=== PATIENT | female | born 1970 | race Hispanic/Latino ===

== ENCOUNTER 2017-05-12 23:25 | Emergency (ER) | payer MEDICAID ==
[2017-05-12] MEDS ORDERED: ASPIRIN 325 MG TABLET ONE (23:43)
[2017-05-12 23:47] LABS: BASOPHILS % (AUTO) 0.8 % (0.0-5.0); EOSINOPHILS % (AUTO) 1.8 % (0.0-8.0); HEMATOCRIT 38.3 % (36-48); LYMPHOCYTES % (AUTO) 30.6 % (21.0-51.0); MEAN CORPUSCULAR HEMOGLOBIN 30.9 pg (27.0-33.0); MEAN CORPUSCULAR HGB CONC 34.2 g/dL (32.0-36.0); MEAN CORPUSCULAR VOLUME 90.2 fL (79-99); MONOCYTES % (AUTO) 5.8 % (3.0-13.0); PLATELET COUNT (AUTO) 213 K/uL (130-400); RED BLOOD CELL COUNT(AUTO) 4.25 MIL/uL (4.00-5.50); RED CELL DISTRIBUTION WIDTH 12.9 % (11.0-15.5); WHITE BLOOD COUNT (AUTO) 9.6 K/uL (4.8-10.8)
[2017-05-12 23:56] LABS: CREATININE 0.7 mg/dL (0.5-1.5); POTASSIUM 3.5 mmol/L (3.5-5.1)
[2017-05-12 23:57] LABS: INR 0.89 (0.85-1.15); PARTIAL THROMBOPLASTIN TIME 25.2 SEC (26.3-35.5); PROTHROMBIN TIME 9.4 SEC (9.6-11.6)
[2017-05-13 00:05] LABS: B-TYPE NATRIURETIC PEPTIDE 15 pg/mL (0-100)
[2017-05-13 00:12] LABS: ALBUMIN 3.5 g/dL (3.5-5.0); BILIRUBIN,TOTAL 0.1 mg/dL (0.2-1.0); TOTAL PROTEIN, SERUM 7.4 g/dL (6.0-8.3)
[2017-05-13 01:01] LABS: AMPHET/METH SCREEN,URINE NEGATIVE (NEGATIVE); BARBITURATE SCREEN, URINE NEGATIVE (NEGATIVE); BENZODIAZEPINES SCREEN,URINE NEGATIVE (NEGATIVE); CANNABINOID SCREEN,URINE NEGATIVE (NEGATIVE); COCAINE SCREEN,URINE NEGATIVE (NEGATIVE); OPIATE SCREEN,URINE POSITIVE (NEGATIVE); PHENCYCLIDINE SCREEN,URINE NEGATIVE (NEGATIVE)
== END 2017-05-13 02:08 | disposition home or self-care (01) ==
LOC: EDH 23:25
DX: R00.2 Palpitations (principal); F41.9 Anxiety disorder, unspecified; E78.5 Hyperlipidemia, unspecified; M79.7 Fibromyalgia; F32.9 Major depressive disorder, single episode, unspecified; G89.29 Other chronic pain; M54.5 Low back pain; R79.1 Abnormal coagulation profile; Z98.890 Other specified postprocedural states; Z72.0 Tobacco use; Z88.1 Allergy status to other antibiotic agents
CPT/HCPCS: 36415; 71045; 80053; 80305; 82550; 82553; 83874; 83880; 84484; 85025; 85610; 85730; 93005; 94761

== ENCOUNTER 2018-01-30 17:41 | Emergency (ER) | payer MEDICAID ==
[2018-01-30] MEDS ORDERED: KETOROLAC TROMETHAMINE 30MG/ML ONE (18:39)
[2018-01-30] MEDS ORDERED: ORPHENADRINE CITRATE 30 MG/ML ML ONE (18:39)
== END 2018-01-30 18:55 | disposition home or self-care (01) ==
LOC: EDH 17:41
DX: G89.29 Other chronic pain (principal); M54.2 Cervicalgia; F41.9 Anxiety disorder, unspecified; F32.9 Major depressive disorder, single episode, unspecified; M79.7 Fibromyalgia; Z88.1 Allergy status to other antibiotic agents; Z76.5 Malingerer [conscious simulation]; Z72.0 Tobacco use
CPT/HCPCS: 96372 ×2; 99284; J1885; J2360

== ENCOUNTER 2021-04-17 08:54 | Emergency (ER) | payer MEDICAID ==
[~2021-04-17] VITALS: Ht 157.5 cm; Wt 77.6 kg
[2021-04-17] MEDS ORDERED: KETOROLAC 15MG/ML VIAL (15MG/ML) ONE (09:23)
[2021-04-17] MEDS ORDERED: ONDANSETRON 4MG INJ ONE (09:23)
[2021-04-17] MEDS ORDERED: MORPHINE 4 MG SYG ONE (09:24)
[2021-04-17 09:26] LABS: BASOPHILS % (AUTO) 0.6 % (0.0-5.0); EOSINOPHILS % (AUTO) 0.6 % (0.0-8.0); HEMATOCRIT 40.9 % (36-48); LYMPHOCYTES % (AUTO) 19.8 % (21.0-51.0); MEAN CORPUSCULAR HEMOGLOBIN 30.1 pg (27.0-33.0); MEAN CORPUSCULAR HGB CONC 33.3 g/dL (32.0-36.0); MEAN CORPUSCULAR VOLUME 90.5 fL (79-99); MONOCYTES % (AUTO) 8.2 % (3.0-13.0); NEUTROPHILS % (AUTO) 70.5 % (40.0-77.0); PLATELET COUNT (AUTO) 225 K/uL (130-400); RED BLOOD CELL COUNT(AUTO) 4.52 MIL/uL (4.00-5.50); RED CELL DISTRIBUTION WIDTH 12.1 % (11.0-15.5)
[2021-04-17] MEDS ORDERED: KETOROLAC 15MG/ML VIAL (15MG/ML) IV SCH (09:30)
[2021-04-17] MEDS ORDERED: ONDANSETRON 4MG INJ IVP SCH (09:30)
[2021-04-17] MEDS ORDERED: MORPHINE 4 MG SYG IVP SCH (09:30)
[2021-04-17 09:53] LABS: CREATININE 0.7 mg/dL (0.5-1.5); POTASSIUM 3.8 mmol/L (3.5-5.1)
[2021-04-17 09:57] LABS: ALBUMIN 4.1 g/dL (3.5-5.0); BILIRUBIN,TOTAL 1.2 mg/dL (0.2-1.0)
[2021-04-17] MEDS ORDERED: ACET1TAB25 PO (11:14)
[2021-04-17] MEDS ORDERED: IBUP-2070 PO (11:14)
[2021-04-17 12:17] VITALS: BP 112/62
== END 2021-04-17 12:26 | disposition home or self-care (01) ==
LOC: EDH 08:54
DX: K80.50 Calculus of bile duct without cholangitis or cholecystitis without obstruction (principal); M19.90 Unspecified osteoarthritis, unspecified site; Z88.1 Allergy status to other antibiotic agents; Z88.2 Allergy status to sulfonamides; Z79.1 Long term (current) use of non-steroidal anti-inflammatories (NSAID)
CPT/HCPCS: 36415; 76705; 80053; 83690; 85025; 96374; 96375; 99284; J1885; J2270; J2405

== ENCOUNTER 2022-09-13 09:48 | Emergency (ER) | payer MEDICAID ==
[~2022-09-13] VITALS: Ht 157.5 cm; Wt 76.7 kg
[~2022-09-13 09:48] MED LIST: ACET-2079 PO; HYOS0.124 SL; IBUP-2070 PO; ONDA4TAB10 PO
[2022-09-13 10:13] LABS: BASOPHILS % (AUTO) 0.5 % (0.0-5.0); EOSINOPHILS % (AUTO) 1.4 % (0.0-8.0); HEMATOCRIT 38.7 % (36-48); LYMPHOCYTES % (AUTO) 33.2 % (21.0-51.0); MEAN CORPUSCULAR HEMOGLOBIN 30.6 pg (27.0-33.0); MEAN CORPUSCULAR HGB CONC 33.1 g/dL (32.0-36.0); MEAN CORPUSCULAR VOLUME 92.6 fL (79-99); MONOCYTES % (AUTO) 7.4 % (3.0-13.0); NEUTROPHILS % (AUTO) 57.2 % (40.0-77.0); PLATELET COUNT (AUTO) 235 K/uL (130-400); RED BLOOD CELL COUNT(AUTO) 4.18 MIL/uL (4.00-5.50); RED CELL DISTRIBUTION WIDTH 12.9 % (11.0-15.5); WHITE BLOOD COUNT (AUTO) 6.6 K/uL (4.8-10.8)
[2022-09-13 10:21] LABS: CREATININE 0.7 mg/dL (0.5-1.5); POTASSIUM 3.9 mmol/L (3.5-5.1)
[2022-09-13 10:26] LABS: ALBUMIN 3.5 g/dL (3.5-5.0); TOTAL PROTEIN, SERUM 7.2 g/dL (6.0-8.3)
[2022-09-13 10:40] LABS: APPEARANCE,URINE CLOUDY (CLEAR); BACTERIA,URINE FEW /HPF (None Seen); BILIRUBIN,URINE NEGATIVE (NEGATIVE); COLOR,URINE YELLOW (YELLOW); GLUCOSE, URINE (UA) NEGATIVE (NEGATIVE); KETONES,URINE NEGATIVE (NEGATIVE); LEUKOCYTE ESTERASE ,URINE 25 Leu/uL (NEGATIVE); MUCUS,URINE FEW LPF (None Seen); NITRATE,URINE NEGATIVE (NEGATIVE); OCCULT BLOOD,URINE NEGATIVE (NEGATIVE); PH,URINE 5.5 (5.0-8.0); PROTEIN,URINE 20 mg/dL (NEGATIVE); SQUAMOUS EPITHELIAL CELL,UR MOD /HPF (0-2); UROBILINOGEN,URINE 0.2 mg/dL (0.2-1.0)
[2022-09-13] MEDS ORDERED: METOCLOPRAMIDE 10 MG/2 ML VIAL IM ONE (12:00)
[2022-09-13] MEDS ORDERED: ACETAMINOPHEN 500 MG TABLET PO ONE (12:00)
[2022-09-13] MEDS ORDERED: TRAM50TA4 PO (12:51)
[2022-09-13 13:11] VITALS: BP 125/60
== END 2022-09-13 13:13 | disposition home or self-care (01) ==
LOC: EDH 09:48
DX: G44.209 Tension-type headache, unspecified, not intractable (principal); M19.90 Unspecified osteoarthritis, unspecified site; M79.7 Fibromyalgia; Z88.1 Allergy status to other antibiotic agents; Z88.2 Allergy status to sulfonamides; Z90.49 Acquired absence of other specified parts of digestive tract; Z20.822 Contact with and (suspected) exposure to COVID-19
CPT/HCPCS: 99285; 70450; 87635; 80053; 85025; 87804 ×2; 81001; 36415; 96372; C9803; J2765